=== PATIENT | female | born 1955 | race Caucasian/White ===

== ENCOUNTER 2019-02-02 11:36 | Emergency (ER) | payer OTHER ==
[~2019-02-02] VITALS: Ht 157.5 cm; Wt 68.2 kg
[2019-02-02] MEDS ORDERED: METF-839 (11:52)
[2019-02-02] MEDS ORDERED: LEVO100T5 (11:52)
[2019-02-02] MEDS ORDERED: ATOR40TA75 (11:52)
[2019-02-02] MEDS ORDERED: LISI10TA4 (11:52)
[2019-02-02] MEDS ORDERED: GLIP5TAB8 (11:52)
[2019-02-02] MEDS ORDERED: CITA20TA4 (11:52)
[2019-02-02 12:15] LABS: BASO # 0.1 10^3/uL (0.0-0.2); BASO % 1.5 % (0.0-1.0); EOS # 0.2 10^3/uL (0.0-0.50); HEMATOCRIT 38.9 % (36.0-47.0); HEMOGLOBIN 12.8 g/dl (12.0-15.5); LYMPH % 33.4 % (24.0-44.0); MEAN CORPUSCULAR HGB CONC 32.9 g/dl (32.0-36.5); MONO # 0.6 10^3/uL (0.0-0.8); MONO % 10.4 % (0.0-5.0); NEUTROPHILS # 3.1 10^3/uL (1.8-7.7); NEUTROPHILS % 51.2 % (36.0-66.0); PLATELET COUNT, AUTOMATED 258 10^3/uL (150-450); RED BLOOD COUNT 4.42 10^6/uL (4.00-5.40)
[2019-02-02 12:44] LABS: ALBUMIN 3.8 GM/DL (3.2-5.2); ALT/SGPT 31 U/L (12-78); BILIRUBIN,DIRECT 0.1 MG/DL (0.0-0.2); BILIRUBIN,TOTAL 0.5 MG/DL (0.2-1.0); BLOOD UREA NITROGEN 21 MG/DL (7-18); CALCIUM LEVEL 8.8 MG/DL (8.8-10.2); CARBON DIOXIDE LEVEL 25 MEQ/L (21-32); CHLORIDE LEVEL 108 MEQ/L (98-107); CK-MB VALUE MASS < 1.0 NG/ML (<3.6); CPK CREATINE PHOSPHOKINASE 62 U/L (26-192); CREATININE FOR GFR 0.87 MG/DL (0.55-1.30); GLOMERULAR FILTRATION RATE > 60.0 (>45); GLUCOSE, FASTING 82 MG/DL (70-100); MB/CK RELATIVE INDEX 1.61 (< OR =4); POTASSIUM SERUM 4.1 MEQ/L (3.5-5.1); SODIUM LEVEL 141 MEQ/L (136-145); TOTAL PROTEIN 7.1 GM/DL (6.4-8.2)
[2019-02-02] MEDS ORDERED: METOCLOPRAMIDE INJ 10MG/2ML VIAL (J2765) IV ONE (12:45)
--- NOTE | 2019-02-02 12:56 | REP ---
CT of the brain without IV contrast: There are no comparisons. There is no hemorrhage. There is no edema, mass effect or midline shift. Cortical stripe is unremarkable. Ventricles are normal size and midline. The visualized paranasal sinuses and mastoid air cells are clear. Impression: There is no hemorrhage, acute infarct or mass. Negative emergency CT study of the brain. Electronically Signed by Raghu Aragon MD 02/02/2019 12:48 P
[2019-02-02 13:03] LABS: HEMOGLOBIN A1c 6.4 %
[2019-02-02 15:00] VITALS: BP 115/61
--- NOTE | 2019-02-03 20:51 | ECGEPIP ---
Stationary ECG Study [facility] - ED Test Date: 2019-02-02 Pat Name: YUKI TAVERA Department: Room: - Gender: F Prep Manager: WANG : [id number] Requested By: AUDREY Decker Order Number: [id number] Reading MD: Tina Ruiz Measurements Intervals [place] Rate: 87 P: 57 CT: 152 QRS: -15 QRSD: 81 T: 32 QT: 363 QTc: 439 Interpretive Statements SINUS RHYTHM MODERATE ST DEPRESSION NO PRIOR FOR COMPARISON Electronically Signed On 02-03-2019 20:51:10 EDT by Tina Ruiz
== END 2019-02-02 15:43 | disposition home or self-care (01) ==
LOC: EDBD 11:36 → M ED 11:36
DX: E11.65 Type 2 diabetes mellitus with hyperglycemia (principal); I10 Essential (primary) hypertension; Z88.1 Allergy status to other antibiotic agents; Z88.2 Allergy status to sulfonamides; Z79.84 Long term (current) use of oral hypoglycemic drugs; Z79.899 Other long term (current) drug therapy
CPT/HCPCS: 70450; 80048; 80076; 81001; 82550; 82553; 83036; 84443; 85025; 87086; 93005; 93041; 94760; 96374; 99285; J2765

== ENCOUNTER → 2020-04-07 | Outpatient (CLI) | payer OTHER ==
[~2020-04-07] MED LIST: ATOR40TA75; CITA20TA6; GLIP5TAB8; LEVO100T5; LISI10TA4; METF-839
--- NOTE | 2020-04-14 12:26 | SLEEPHOME ---
DATE OF STUDY: 04/07/2020 ORDERED BY: Rama Jimenez Diagnostic home sleep testing was performed due to concern for the obstructive sleep apnea syndrome. For testing, a nocturnal T3 respiratory monitoring device was used. Continuous record was made of pulse, oxygen saturation, airflow, chest and abdominal strain and body position. 9 hours and 59 minutes of data were reviewed. There were 9 hours and 39 minutes marked as time in bed. During the interval marked time in bed, there were 128 respiratory events identified of 10 seconds in duration or greater. The events were not exclusive to sleep position. There were primarily obstructive, though 52 mixed and central apneas were scored. The patient's baseline pulse rate was 66, pulse rate ranged 52-143. Baseline saturation was 93%, saturations fell to 88%. Testing was performed in both the supine and nonsupine positions. IMPRESSION: Abnormal home sleep testing with repetitive respiratory events and oxygen desaturations to 88% with a respiratory event index of 13.3 is consistent with the obstructive sleep apnea syndrome. RECOMMENDATION: The patient should be encouraged to undergo formal sleep evaluation. Given the frequency of central apneic events, complex apnea may be present and interventions may be complex.
== END ==
LOC: M SLEEP HO 10:10
PROVIDERS: ATTEND Nurse Practitioner Family
DX: G47.10 Hypersomnia, unspecified (principal)

== ENCOUNTER 2020-05-03 08:03 | Day surgery (SDC) | payer OTHER ==
[~2020-05-03] VITALS: Ht 157.5 cm; Wt 67.6 kg
[~2020-05-03 08:03] MED LIST changes: -CITA20TA6; +CITA20TA6 PO; -LEVO100T5; +LEVO100T5 PO; -LISI10TA4; +LISI10TA4 PO
[2020-05-03] MEDS ORDERED: HYDR-2808 PO (08:19)
[2020-05-03] MEDS ORDERED: JARD1TAB PO (08:19)
--- NOTE | 2020-05-03 09:12 | REP ---
Clinical: Trauma. Right radius fracture. Technique: Axial noncontrast images through the right wrist with coronal and sagittal re-formations. Findings: There is a comminuted nondisplaced intra-articular fracture of the distal radius. Carpal bones demonstrate generalized age-related degenerative changes without obvious carpal bone fracture. The scaphoid bone appears intact. Surrounding post traumatic soft tissue swelling and infiltration noted without obvious focal hematoma. No subcutaneous emphysema or foreign body. Impression: 1. Comminuted nondisplaced intra-articular fracture of the distal radius. 2. Scaphoid bone and carpal bones demonstrate age-related degenerative changes without further acute fracture identified. Electronically Signed by Fernandez Schmitt MD 05/03/2020 09:04 A
[2020-05-03] MEDS ORDERED: VITA50005 PO (11:05)
[2020-05-03] MEDS ORDERED: METF500T13 PO (11:05)
[2020-05-03] MEDS ORDERED: ATOR80TA59 PO (11:05)
[2020-05-03] MEDS ORDERED: ATOR40TA75 PO (11:09)
[2020-05-03] MEDS ORDERED: LR 1,000 ML IV SCH ×3 (11:30→16:45)
[2020-05-03] MEDS ORDERED: MORPHINE 2 MG/ML 1ML VIAL (J2270) IV ONE (11:30)
[2020-05-03 12:30] LABS: HEMATOCRIT 41.2 % (36.0-47.0); MEAN CORPUSCULAR HEMOGLOBIN 28.6 pg (27.0-33.0); MEAN CORPUSCULAR HGB CONC 31.6 g/dl (32.0-36.5); MEAN CORPUSCULAR VOLUME 90.7 fl (80.0-96.0); PLATELET COUNT, AUTOMATED 193 10^3/uL (150-450); RED BLOOD COUNT 4.54 10^6/uL (4.00-5.40); WHITE BLOOD COUNT 6.6 10^3/uL (4.0-10.0)
[2020-05-03 12:48] LABS: BLOOD UREA NITROGEN 17 MG/DL (7-18); CALCIUM LEVEL 8.8 MG/DL (8.8-10.2); CARBON DIOXIDE LEVEL 27 MEQ/L (21-32); CHLORIDE LEVEL 106 MEQ/L (98-107); CREATININE FOR GFR 0.72 MG/DL (0.55-1.30); GLOMERULAR FILTRATION RATE > 60.0 (>45); GLUCOSE, FASTING 90 MG/DL (70-100); POTASSIUM SERUM 3.8 MEQ/L (3.5-5.1); SODIUM LEVEL 139 MEQ/L (136-145)
[2020-05-03] MEDS ORDERED: ceFAZolin 2 GM/D5W 50 ML IV BAG (J0690 PER 500MG) As Ordered ONE (14:22)
[2020-05-03] MEDS ORDERED: PERCOCET 5MG/325MG TAB PO ONE (14:30)
[2020-05-03] MEDS ORDERED: ceFAZolin SOD 2 GM in IV 1 EA IV ONE (14:30)
[2020-05-03] MEDS ORDERED: GABAPENTIN 300 MG CAP PO ONE (14:30)
[2020-05-03] MEDS ORDERED: CelecoXIB (CeleBREX) 100 MG CAP PO ONE (14:30)
[2020-05-03] MEDS ORDERED: ceFAZolin 1GM VIAL (J0690 PER 500MG) As Ordered ONE (14:37)
[2020-05-03] MEDS ORDERED: BUPIVACAINE/EPIN 0.25% 30 ML VIAL As Ordered ONE (14:37)
[2020-05-03] MEDS ORDERED: LIDOCAINE 2% 100MG/5ML SDV (FOR ANES.) As Ordered ONE (14:58)
[2020-05-03] MEDS ORDERED: dexameTHASONE 4 MG/ML 1ML VIAL (J1100 PER 1MG) As Ordered ONE (14:58)
[2020-05-03] MEDS ORDERED: fentaNYL 250 MCG/5 ML INJECTION (J3010) As Ordered ONE (14:58)
[2020-05-03] MEDS ORDERED: MIDAZOLAM INJ 2MG/2ML VIAL (J2250 PER 1MG) As Ordered ONE (14:58)
[2020-05-03] MEDS ORDERED: propofoL 200 MG/20 ML VIAL As Ordered ONE (14:58)
[2020-05-03] MEDS ORDERED: METOCLOPRAMIDE INJ 10MG/2ML VIAL (J2765 PER 1) As Ordered ONE (14:58)
[2020-05-03] MEDS ORDERED: ROCURONIUM BROMIDE 50 MG/5 ML VIAL As Ordered ONE (14:58)
[2020-05-03] MEDS ORDERED: SUGAMMADEX SODIUM 500 MG/5 ML VIAL (BRIDION) As Ordered ONE (14:58)
[2020-05-03] MEDS ORDERED: ONDANSETRON 4MG/2ML VIAL As Ordered ONE (14:58)
[2020-05-03] MEDS ORDERED: ACETAMINOPHEN 1000MG 100ML IV BTL (OFIRMEV) (J0131 PER 10MG) As Ordered ONE (15:55)
[2020-05-03] MEDS ORDERED: oxyCODONE 5MG TAB PO PRN (16:45)
[2020-05-03] MEDS ORDERED: fentaNYL 100 MCG/2 ML INJECTION (J3010) IV PRN (16:45)
[2020-05-03] MEDS ORDERED: ONDANSETRON 4MG/2ML VIAL IV PRN (16:45)
[2020-05-03] MEDS ORDERED: PERCOCET 5MG/325MG TAB PO PRN ×2 (16:45)
[2020-05-03] MEDS ORDERED: PROMETHAZINE INJ 25 MG/ML VIAL (J2550) IV PRN (16:45)
[2020-05-03] MEDS ORDERED: METOCLOPRAMIDE INJ 10MG/2ML VIAL (J2765 PER 1) IV PRN (16:45)
--- NOTE | 2020-05-03 16:46 | REP ---
Clinical: Status post fixation. Technique: Intraoperative fluoroscopic imaging using portable C-arm technique. Findings: Satisfactory open reduction and fixation for distal radial fracture. Total fluoroscopic time 34 seconds. Impression: Satisfactory open reduction and fixation. Electronically Signed by Fernandez Schmitt MD 05/03/2020 04:37 P
[2020-05-03] MEDS ORDERED: MORPHINE 2 MG/ML 1ML VIAL (J2270) IV PRN (17:00)
[2020-05-03] MEDS ORDERED: ceFAZolin SOD 1 GM in D5W MINI-BAG PLUS 50 ML IV ONE (17:30)
[2020-05-03 18:30] VITALS: BP 117/71
[2020-05-03 19:00] VITALS: BP 120/72
[2020-05-03 20:00] VITALS: BP 100/65
[2020-05-03 21:00] VITALS: BP 101/64
[2020-05-03 22:00] VITALS: BP 104/55
[2020-05-03 23:00] VITALS: BP 103/54
[2020-05-04 02:00] VITALS: BP 96/52
[2020-05-04 06:00] VITALS: BP 114/73
[2020-05-04] MEDS ORDERED: PERC5TAB12 PO (06:02)
--- NOTE | 2020-05-04 06:45 | CR ---
DATE OF CONSULTATION: 05/03/2020 I was asked to see the patient at the request of the ER to evaluate right wrist fracture. HISTORY: Cammy is a 64-year-old female. She was first seen at [facility] with a comminuted intra-articular distal radius fracture. She was seen yesterday with that. The injury happened yesterday. She fell onto her outstretched upper extremity on the right side. There was no loss of consciousness. Imaging studies reflected comminution of the distal radius. She came to [facility] date of examination further evaluation of the distal radius this morning through the ER. She had a CT scan in the ER which reflected a comminuted distal radius fracture with little impaction, intra-articular at least three-part. She complains of an aching pain that hurts her about 6/10. She had a left upper extremity distal radius fracture a couple of years ago and did all right with a volar plate with that. She denies numbness. Denies tingling. ALLERGIES: Allergy to SULFA drugs. MEDICAL HISTORY: Includes [id number] diabetes, hypothyroidism, hypertension, hyperlipidemia. MEDICATIONS AT HOME: - levothyroxine - lisinopril - cholesterol medication she cannot recall - metformin - Januvia PAST SURGICAL HISTORY: Includes left upper extremity open reduction internal fixation (ORIF) distal radius fracture. SOCIAL HISTORY: She does not smoke. Rarely drinks. Denies illegal drugs. 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 FAMILY HISTORY: Noncontributory. REVIEW OF SYSTEMS: She is not complaining of constitutional symptoms, headache, dizziness, shortness of breath, chest pain, abdominal pain, endocrine issues, rashes or neurologic issues. Reports her endocrine, hypothyroidism and diabetes is well maintained. CLINICAL EXAMINATION: She is alert, oriented and cooperative. Mood and affect appropriate. She appears to be her stated age of 64 or a bit younger. She is well-groomed, non distressed. Vital signs are stable. Cardiac: Regular at about 80. No shortness breath, cough or evidence of respiratory tract infection. No abdominal distention. Integument: She does have a bruise on her forehead. Otherwise normocephalic, atraumatic. Skin intact upper and lower extremities. Right upper extremity tender, mildly edematous, sensate. Pain with flexion/extension of the fingers. No atrophy. Normal muscle tone. No pain at the elbow or the shoulder. IMAGING: Comminuted intra-articular distal radius fracture, multi part with minimal depression. IMPRESSION: Distal radius fracture, comminuted, intra-articular on the right dominant side, as of history right is dominant. RECOMMENDATION: I talked to the patient about operative intervention including surgery versus casting. We talked about risks and benefits of the surgery, including but not limited to, pain, failure, infection, bleeding, blood loss, Incomplete relief of symptoms, stiffness, need for additional surgery, and other issues. She understands that surgery will keep her out of a long arm cast, help maintain alignment and result in earlier range of motion. She agrees to proceed with surgery accordingly with anesthesia in the operating room as well as the ER. She had a COVID test in the ER that was negative.
[2020-05-04 10:00] VITALS: BP 109/63
--- NOTE | 2020-05-07 12:33 | RO ---
DATE OF PROCEDURE: 05/03/2020 PREOPERATIVE DIAGNOSIS: Right distal radius fracture, comminuted, intra-articular three part. POSTOPERATIVE DIAGNOSIS: Right distal radius fracture, comminuted, intra-articular three part. PROCEDURE: Open reduction internal fixation of multi part, three plus part, distal radius fracture with plate implant volar. SURGEON: Dr. Arnaldo Farooq BANANA ROOM CUTTER: ANESTHESIA: (Dr. Hercules). General endotracheal. ESTIMATED BLOOD LOSS: Less than 40 mL, replaced with crystalloid. NO COMPLICATIONS: NO TOURNIQUET WAS UTILIZED. INDICATIONS: Fall on outstretched right upper extremity, multi part fracture distal radius, comminuted. The patient has elected for operative intervention. CONSENT: Reviewed in detail with the patient. COMPONENTS: Included a [employer] standard right 3-hole volar place and the appropriate locking and non locking screws. OPERATIVE COURSE: Identified in holding area, site and side verififed, brought to the operating room. Once anesthesia was administered, positioned in the usual fashion for exposure of the right upper extremity. Tourniquet was not required to be inflated. Once the time out was accomplished, we began making an incision longitudinal made over the flexor carpi radialis. Infiltrated with 1/4% Marcaine with epinephrine. Incision made with a 10 blade knife and developed down through subcuticular tissues. Loupe magnification was utilized. Flexor carpi radialis was identified. Sheath was opened sharply using the 10 blade knife. The tendon was swept to the radial side. The sheath was also opened using the 10 blade knife. Dissection continued exposing the pronator quadratus. The pronator quadratus was elevated from its radial border using Bovie cautery and Paz elevator. The fracture was appreciated. Reduction was accomplished. The 3-hole standard plate was applied, pinned into place and position verified fluoroscopically. Cortical non locking screw was placed in the oval hole. The plate was moved distally to a radiographically acceptable location. I then tightened the 12 mm screw. We then utilized the drill guide to drill the distal hole in the radial proximal distal screw. Next, once this was accomplished, locking screw was placed in the second locking screw hole proximally; drilled, measured and locked in place. Next, final fluoroscopic images in the AP and lateral plane were obtained and found to be acceptable. Irrigation was accomplished. The pronator quadratus was friable and not able to be repaired. The deep dermis was reapproximated with #3-0 Vicryl stitch, Pernio dressing was applied, volar splint was applied. The patient was extubated and moved to the recovery room in good condition. For further details, please refer to the medical record.
== END 2020-05-04 12:00 | disposition home or self-care (01) ==
LOC: M ED 08:03 → M SDC 12:00 → M MS5PR 17:50 → M SDC 05-04 12:00
PROVIDERS: ATTEND Orthopaedic Surgery
DX: S52.571A Other intraarticular fracture of lower end of right radius, initial encounter for closed fracture (principal); W19.XXXA Unspecified fall, initial encounter; Y92.89 Other specified places as the place of occurrence of the external cause; Y93.9 Activity, unspecified; Y99.9 Unspecified external cause status; E11.9 Type 2 diabetes mellitus without complications; E03.9 Hypothyroidism, unspecified; I10 Essential (primary) hypertension; E78.49 Other hyperlipidemia; Z79.84 Long term (current) use of oral hypoglycemic drugs; Z79.899 Other long term (current) drug therapy; F41.9 Anxiety disorder, unspecified; F32.9 Major depressive disorder, single episode, unspecified
CPT/HCPCS: 25609; 36415; 73110; 80048; 85027; 96361; 96365; 96366; 99284; C1713; J0131; J0690; J1100; J2250; J2405; J2765; J3010; U0002